=== PATIENT | male | born 1985 | race American Indian/Alaskan Native ===

== ENCOUNTER 2017-11-01 11:32 | Emergency (ER) | payer SELFPAY ==
[2017-11-01 11:43] VITALS: BP 152/87
--- NOTE | 2017-11-01 13:35 | XRay Report ---
ROUTINE CHEST, TWO VIEWS: HISTORY: chest pain. The trachea, heart, mediastinal contour, lung christopher and bony thorax are unremarkable. IMPRESSION: Unremarkable chest x-ray.
--- NOTE | 2017-11-01 15:09 | Emergency Department Report ---
ED General Adult HPI - General Chief complaint: Chest Pain Stated complaint: CHEST PAIN Time Seen by Provider: 11/01/17 14:57 Source: patient Mode of arrival: Ambulatory Limitations: No Limitations - History of Present Illness Initial comments: Patient is a 32-year-old gentleman who is complaining of some left-sided chest pain for the past several months off and on. He's had some increased pain for the last 2-3 days. Patient states the pain lasts for up to 30 seconds at a time and then dissipates. He says is random. He denies any exertional component any pain with lifting his arms or twisting his torso. He denies any cough cold congestion nausea vomiting diarrhea diaphoresis. Patient states he was seen at [facility] several months ago and had a negative stress test. Patient. Because he is worried about the chest pain. - Related Data Previous Rx's Medication Instructions Recorded Last Taken Type Famotidine [Pepcid] 40 mg PO QHS #10 tablet 11/01/17 Unknown Rx traMADol [Ultram] 50 mg PO Q6HR PRN #12 tablet 11/01/17 Unknown Rx Allergies Allergy/AdvReac Type Severity Reaction Status Date / Time No Known Allergies Allergy Unverified 11/01/17 11:44 ED Review of Systems ROS: Stated complaint: CHEST PAIN Other details as noted in HPI Comment: All other systems reviewed and negative ED Past Medical Hx - Medications Home Medications: Home Medications Medication Instructions Recorded Confirmed Last Taken Type Famotidine [Pepcid] 40 mg PO QHS #10 tablet 11/01/17 Unknown Rx traMADol [Ultram] 50 mg PO Q6HR PRN #12 tablet 11/01/17 Unknown Rx ED Physical Exam - General Limitations: No Limitations General appearance: alert, in no apparent distress - Head Head exam: Present: atraumatic, normocephalic - Eye Eye exam: Present: normal appearance - ENT ENT exam: Present: mucous membranes moist - Neck Neck exam: Present: normal inspection - Respiratory Respiratory exam: Present: normal lung sounds bilaterally. Absent: respiratory distress, wheezes, rales, rhonchi, chest wall tenderness - Cardiovascular Cardiovascular Exam: Present: regular rate, normal rhythm, normal heart sounds. Absent: systolic murmur, diastolic murmur, rubs, gallop - GI/Abdominal GI/Abdominal exam: Present: soft, normal bowel sounds. Absent: distended, tenderness, guarding, rebound, rigid - Rectal Rectal exam: Present: deferred - Extremities Exam Extremities exam: Present: normal inspection - Back Exam Back exam: Present: normal inspection - Neurological Exam Neurological exam: Present: alert, oriented X3 - Psychiatric Psychiatric exam: Present: normal affect, normal mood - Skin Skin exam: Present: warm, dry, intact, normal color. Absent: rash ED Course Vital Signs 11/01/17 11:40 Temperature 98.2 F Pulse Rate 76 Respiratory 16 Rate Blood Pressure 152/87 O2 Sat by Pulse 99 Oximetry ED Medical Decision Making - EKG Data -: EKG Interpreted by [place] EKG shows normal: sinus rhythm, axis, intervals, QRS complexes, ST-T waves Rate: normal - EKG Data Interpretation: normal EKG - Radiology Data Chest x-ray is within normal limits - Medical Decision Making Patient's been ruled out for having a STEMI pericarditis pneumonia cardiomyopathy. Patient's symptoms are very atypical. Patient started seeing cardiology therefore be referred to gastroenterology for evaluation of possible peptic ulcer disease or GERD. Critical care attestation.: If time is entered above; I have spent that time in minutes in the direct care of this critically ill patient, excluding procedure time. ED Disposition Clinical Impression: Atypical chest pain Disposition: DC-01 TO HOME OR SELFCARE Is pt being admited?: No Does the pt Need Aspirin: No Condition: Stable Instructions: Chest Pain (ED), Peptic Ulcer (ED) Referrals: SALVADOR SHETH MD [Staff Physician] - 3-5 Days Time of Disposition: 15:11
== END 2017-11-01 15:17 | disposition home or self-care (01) ==
LOC: ED 11:32
DX: R07.89 Other chest pain (principal)
CPT/HCPCS: 71046; 93005; 93010; 99283